=== PATIENT | male | born 1945 | race Caucasian/White ===

== ENCOUNTER 2018-05-06 06:55 | Inpatient (IN) | payer MEDICARE ==
[~2018-05-06] VITALS: Ht 170.2 cm; Wt 61.2 kg
[2018-05-06 06:55] VITALS: BP_SYST 118
[2018-05-06] MEDS ORDERED: NACL 0.9% 1,000 ML IV ONE (07:29)
[2018-05-06 08:39] LABS: BASOPHILS # (AUTO) 0.1 K/uL (0.0-0.2); BASOPHILS % (AUTO) 1.4 % (0.0-2.0); EOSINOPHILS # (AUTO) 0.1 K/uL (0.0-0.4); EOSINOPHILS % (AUTO) 1.3 % (0.0-4.0); HEMATOCRIT 34.4 % (36-54); HEMOGLOBIN 11.2 g/dL (14.0-18.0); LYMPHOCYTES # (AUTO) 0.3 K/uL (1.0-5.5); LYMPHOCYTES % (AUTO) 5.7 % (20.5-51.5); MEAN CORPUSCULAR HEMOGLOBIN 27 pg (27-31); MEAN CORPUSCULAR HGB CONC 33 % (32-36); MEAN CORPUSCULAR VOLUME 84 fL (79.0-98.0); MONOCYTES # (AUTO) 0.5 K/uL (0.0-1.0); MONOCYTES % (AUTO) 8.4 % (1.7-9.3); NEUTROPHILS # (AUTO) 4.7 K/uL (1.8-7.7); NEUTROPHILS % (AUTO) 83.2 % (40.0-70.0); PLATELET COUNT (AUTO) 139 K/uL (130-430); RED CELL DISTRIBUTION WIDTH 20.3 % (9.0-15.0); WHITE BLOOD COUNT (AUTO) 5.7 K/uL (4.8-10.8)
[2018-05-06 08:58] LABS: POTASSIUM 3.4 mmol/L (3.5-5.1)
[2018-05-06 08:59] LABS: CALCIUM 8.5 mg/dL (8.4-11.0); CREATININE 0.89 mg/dL (0.55-1.30); TOTAL BILIRUBIN 0.2 mg/dL (0.0-1.0)
[2018-05-06 09:00] LABS: ALBUMIN 2.5 g/dL (3.4-4.8)
[2018-05-06 09:12] LABS: PROTHROMBIN TIME 10.1 SECS (9.5-12.5)
[2018-05-06] MEDS ORDERED: SIRO0.5T PO (09:22)
[2018-05-06] MEDS ORDERED: MYCO500T PO (09:23)
[2018-05-06] MEDS ORDERED: URSO500T PO (09:23)
[2018-05-06] MEDS ORDERED: AMLO5TAB4 PO (09:24)
[2018-05-06] MEDS ORDERED: MULT-1117 PO (09:27)
[2018-05-06] MEDS ORDERED: GALA8TAB3 PO (09:27)
[2018-05-06] MEDS ORDERED: SER25 PO (09:27)
[2018-05-06] MEDS ORDERED: LEVO75TA7 PO (09:28)
[2018-05-06 10:22] VITALS: BP_SYST 144
[2018-05-06] MEDS: URSODIOL 250 MG PO SCH ×2 (11:00→22:14)
[2018-05-06] MEDS ORDERED: LEVOTHYROXINE SODIUM 0.075 MG TABLET PO SCH (11:00)
[2018-05-06] MEDS: GALANTAMINE HYDROBROMIDE 4 MG TABLET PO SCH ×2 (11:00→22:16)
[2018-05-06] MEDS ORDERED: amLODIPine BESYLATE 5 MG TABLET PO SCH (11:00)
[2018-05-06] MEDS ORDERED: amLODIPine BESYLATE 5 MG TABLET PO ONE (11:00)
[2018-05-06] MEDS: MYCOPHENOLATE MOFETIL 250 MG CAPSULE PO SCH ×2 (11:00→22:15)
[2018-05-06] MEDS ORDERED: LEVOTHYROXINE SODIUM 0.075 MG TABLET PO ONE (11:15)
[2018-05-06] MEDS ORDERED: MYCOPHENOLATE MOFETIL 250 MG CAPSULE PO ONE (11:15)
[2018-05-06] MEDS ORDERED: LORazepam 2 MG/ML VIAL ONE (11:27)
[2018-05-06] MEDS ORDERED: MULTIVITAMINS TAB 1 TABLET PO ONE (11:30)
[2018-05-06] MEDS ORDERED: LORazepam 2 MG/ML VIAL IM ONE (11:30)
[2018-05-06] MEDS ORDERED: MULTIVITAMINS TAB 1 TABLET PO SCH (11:30)
[2018-05-06] MEDS ORDERED: GALANTAMINE HYDROBROMIDE 4 MG TABLET PO ONE (11:30)
[2018-05-06] MEDS ORDERED: HALOPERIDOL LACTATE 5 MG/ML VIAL IM PRN (11:45)
[2018-05-06] MEDS ORDERED: KCL 20 mEq in 100 mL (PREMIX) 100 ML IV SCH (12:00)
[2018-05-06] MEDS ORDERED: IPRATROPIUM/ALBUTEROL SULFATE 3 ML AMPUL.NEB (DUONEB) INH PRN (12:00)
[2018-05-06] MEDS ORDERED: IPRATROPIUM/ALBUTEROL SULFATE 3 ML AMPUL.NEB (DUONEB) INH ONE (12:00)
[2018-05-06 12:02] VITALS: BP_SYST 123
[2018-05-06] MEDS: D5LR 1,000 ML IV SCH ×2 (12:09→22:17)
[2018-05-06] MEDS: PIPERACILLIN/TAZO 3.375/DEX-IS 50 ML IV SCH ×2 (12:52→18:18)
[2018-05-06 14:48] VITALS: BP_SYST 123
[2018-05-06] MEDS: IPRATROPIUM/ALBUTEROL SULFATE 3 ML AMPUL.NEB (DUONEB) INH SCH ×3 (15:27→23:16)
[2018-05-06 16:02] VITALS: BP_SYST 121
[2018-05-06] MEDS: RAPAMUNE 1 MG PO SCH (16:56)
[2018-05-06] MEDS ORDERED: QUEtiapine FUMARATE 25 MG TABLET PO SCH (18:00)
[2018-05-06 20:04] VITALS: BP_SYST 137
[2018-05-06] MEDS: amLODIPine BESYLATE 5 MG TABLET PO SCH (22:15)
[2018-05-06] MEDS ORDERED: ASPIRIN 81 MG TABLET(ECOTRIN) PO SCH (23:00)
[2018-05-07] MEDS: ENOXAPARIN SODIUM 60 MG/0.6 ML SYRINGE SUBCUT SCH ×2 (00:02→09:23)
[2018-05-07] MEDS: PIPERACILLIN/TAZO 3.375/DEX-IS 50 ML IV SCH ×3 (00:03→13:25)
[2018-05-07] MEDS ORDERED: ENOXAPARIN SODIUM 60 MG/0.6 ML SYRINGE ONE (00:04)
[2018-05-07] MEDS ORDERED: ASPIRIN 81 MG TAB.CHEW ONE (00:05)
[2018-05-07 00:26] VITALS: BP_SYST 151
[2018-05-07] MEDS: IPRATROPIUM/ALBUTEROL SULFATE 3 ML AMPUL.NEB (DUONEB) INH SCH ×4 (05:26→15:14)
[2018-05-07] MEDS: D5LR 1,000 ML IV SCH (06:49)
[2018-05-07] MEDS ORDERED: LEVOTHYROXINE SODIUM 0.075 MG TABLET PO SCH (07:00)
[2018-05-07 08:00] VITALS: BP_SYST 128
[2018-05-07 08:42] LABS: BASOPHILS % (AUTO) 0.7 % (0.0-2.0); EOSINOPHILS # (AUTO) 0.1 K/uL (0.0-0.4); EOSINOPHILS % (AUTO) 1.3 % (0.0-4.0); HEMOGLOBIN 11.9 g/dL (14.0-18.0); LYMPHOCYTES # (AUTO) 0.7 K/uL (1.0-5.5); MEAN CORPUSCULAR HEMOGLOBIN 26 pg (27-31); MEAN CORPUSCULAR HGB CONC 32 % (32-36); MEAN CORPUSCULAR VOLUME 82 fL (79.0-98.0); MONOCYTES # (AUTO) 0.3 K/uL (0.0-1.0); MONOCYTES % (AUTO) 6.4 % (1.7-9.3); NEUTROPHILS # (AUTO) 2.8 K/uL (1.8-7.7); NEUTROPHILS % (AUTO) 73.6 % (40.0-70.0); PLATELET COUNT (AUTO) 141 K/uL (130-430); RED BLOOD CELL COUNT(AUTO) 4.52 MIL/uL (4.2-6.2); RED CELL DISTRIBUTION WIDTH 19.6 % (9.0-15.0); WHITE BLOOD COUNT (AUTO) 3.9 K/uL (4.8-10.8)
[2018-05-07] MEDS ORDERED: MULTIVITAMINS TAB 1 TABLET PO SCH (09:00)
[2018-05-07] MEDS ORDERED: ASPIRIN 81 MG TABLET(ECOTRIN) PO SCH (09:00)
[2018-05-07 09:08] LABS: CALCIUM 9.4 mg/dL (8.4-11.0); CREATININE 0.77 mg/dL (0.55-1.30); POTASSIUM 3.6 mmol/L (3.5-5.1)
[2018-05-07] MEDS: MYCOPHENOLATE MOFETIL 250 MG CAPSULE PO SCH (09:12)
[2018-05-07] MEDS: GALANTAMINE HYDROBROMIDE 4 MG TABLET PO SCH (09:13)
[2018-05-07] MEDS: amLODIPine BESYLATE 5 MG TABLET PO SCH (09:15)
[2018-05-07 09:17] LABS: ALBUMIN 2.8 g/dL (3.4-4.8); TOTAL BILIRUBIN 0.4 mg/dL (0.0-1.0)
[2018-05-07] MEDS: URSODIOL 250 MG PO SCH (09:17)
[2018-05-07 09:18] LABS: FREE T4 (FREE THYROXINE) 0.5 ng/dL (0.6-1.6); THYROID STIMULATING HORMONE 2.89 uIu/mL (0.34-4.82)
[2018-05-07] MEDS: RAPAMUNE 1 MG PO SCH (09:18)
[2018-05-07 12:02] VITALS: BP_SYST 138
[2018-05-07 16:02] VITALS: BP_SYST 125
[2018-05-07 16:16] VITALS: BP_SYST 125
== END 2018-05-07 17:10 | disposition short-term general hospital (02) | DRG 280 ==
LOC: SED 06:55 → STU 09:10
PROVIDERS: ADMIT Internal Medicine; ATTEND Internal Medicine
PROC: 0B21XFZ Change Tracheostomy Device in Trachea, External Approach (ICD-10-PCS; principal; 2018-05-06)
DX: I21.4 Non-ST elevation (NSTEMI) myocardial infarction (principal); J96.20 Acute and chronic respiratory failure, unspecified whether with hypoxia or hypercapnia; J44.1 Chronic obstructive pulmonary disease with (acute) exacerbation; Z94.4 Liver transplant status; F02.80 Dementia in other diseases classified elsewhere, unspecified severity, without behavioral disturbance, psychotic disturbance, mood disturbance, and anxiety; E78.5 Hyperlipidemia, unspecified; E03.9 Hypothyroidism, unspecified; D64.9 Anemia, unspecified; I10 Essential (primary) hypertension; K74.69 Other cirrhosis of liver; B19.20 Unspecified viral hepatitis C without hepatic coma; Z74.01 Bed confinement status; Z85.05 Personal history of malignant neoplasm of liver; Z86.73 Personal history of transient ischemic attack (TIA), and cerebral infarction without residual deficits; Z87.01 Personal history of pneumonia (recurrent); Z79.899 Other long term (current) drug therapy; Z93.0 Tracheostomy status; Z88.8 Allergy status to other drugs, medicaments and biological substances; Z86.19 Personal history of other infectious and parasitic diseases
CPT/HCPCS: 36415; 71045; 80053; 80061; 83605; 83735-TC; 83880; 84439; 84443-TC; 84484; 85025; 85610-TC; 85730-TC; 92610-GN; 93005; 93306; 94640; 94760; 99285; J1650; J2060; J2543; J3480; J7030; J7050; J7120; J7517; J7620